=== PATIENT | female | born 1975 ===

== ENCOUNTER 2019-05-22 11:46 | Day surgery (SDC) | payer BC ==
[~2019-05-22] VITALS: Ht 172.7 cm; Wt 96.9 kg
[~2019-05-22 11:46] MED LIST: MULVITMINE
== END 2019-05-22 14:02 | disposition home or self-care (01) ==
LOC: ORSCSDS 11:46
PROVIDERS: Internal Medicine Gastroenterology
PROC: 0DB68ZX Excision of Stomach, Via Natural or Artificial Opening Endoscopic, Diagnostic (ICD-10-PCS; principal; 2019-05-22 13:15)
PROC: 0DB98ZX Excision of Duodenum, Via Natural or Artificial Opening Endoscopic, Diagnostic (ICD-10-PCS; principal; 2019-05-22 13:15)
DX: K21.9 Gastro-esophageal reflux disease without esophagitis (principal); E22.1 Hyperprolactinemia; E66.9 Obesity, unspecified; Z68.32 Body mass index [BMI] 32.0-32.9, adult
CPT/HCPCS: J2704; J7120

== ENCOUNTER → 2025-02-09 | Outpatient (CLI) | payer OTHER ==
[2025-02-16 09:23] LABS: HPV HIGH RISK BY TMA Not Detected; HPV SOURCE Cervical
== END ==
LOC: LAB SHORT 18:53 → LAB 18:53
PROVIDERS: Physician Assistant
DX: Z01.419 Encounter for gynecological examination (general) (routine) without abnormal findings (principal)
CPT/HCPCS: 87624; G0123